=== PATIENT | female | born 1965 | race Caucasian/White ===

== ENCOUNTER 2019-10-12 11:58 | Day surgery (SDC) | payer OTHER, SELFPAY ==
[2019-10-12] VITALS (7 sets, daily range): BP systolic 106–129; BP diastolic 70–88; PULSE 85–112; RESP 12–24; TEMP 35.9–36.2; O2SAT 92–100; BMI 31.6
--- NOTE | 2019-10-12 | PATH_ITS ---
[facility] Accession Number: [id number] . 01 Material submitted: . colon - CECAL MASS . 02 Diagnosis: Cecum, Mass, Biopsies: Multiple fragments of tubulovillous adenoma. No evidence of malignancy or high-grade dysplasia. MRV 10/13/2019 1216 Local . 02 Electronically signed: . Mara Pepe MD, Pathologist NPI- [id number] . 01 Gross description: . CECAL MASS: Received in formalin are multiple fragment(s) of rogers, soft tissue measuring 0.1 x 0.1 x 0.1 cm to 0.7 x 0.6 x 0.5 cm submitted entirely in 2 cassette(s) /[facility] [place] 10/12/2019 2231 Local . 02 Pathologist provided ICD-10: D12.0 . 02 CPT . 065765 Performed at: 01 [facility] [address], [place], [place] [id number] MD Arsenio Bloom MD Phone: [phone] Performed at: [address] [facility] [address] [place], [place] [id number] MD Mara Pepe MD Phone: [phone]
[2019-10-12] MEDS: SODIUM CHLORIDE 0.9% 1,000 ML 200 ML IV (12:34)
--- NOTE | 2019-10-12 13:01 | PM.HP.1 ---
History of Present Illness History of Present Illness Date Patient Seen: 10/12/19 Time Patient Seen: 13:01 Chief complaint: [id number] Narrative: Patient presents for colorectal screening. They have never had any previous examination for such. No personal or family history of colon cancer. On further history denies any recent gastrointestinal symptoms. No nausea, vomiting, abdominal pain, loss of appetite, unexplained weight loss, change in bowel habits, diarrhea, constipation, melena, hematochezia, or bright red blood per rectum. Patient History Medical History Obesity (Acute) Surgical History H/O tubal ligation (Acute) History of appendectomy (Acute) Family & Social History Social History: household members spouse Tobacco & Substance use: Smoking Status Former smoker alcohol intake frequency a few times a week Substance Use Type does not use Meds Home Medications and Allergies Home Medications Medication Instructions Recorded Confirmed Type fluoxetine 20 mg PO DAILY 10/12/19 10/12/19 History levothyroxine [Synthroid] 25 mcg PO DAILY 10/12/19 10/12/19 History loratadine 10 mg PO DAILY 10/12/19 10/12/19 History Allergies Allergy/AdvReac Type Severity Reaction Status Date / Time amoxicillin Allergy Unknown Hives Verified 10/12/19 12:18 Review of Systems Review of Systems Narrative: A 10 point review of systems is negative except as noted in the HPI Exam Vital Signs (past 8 hours): - 10/12/19 12:24 Temperature 97.2 F L Pulse Rate 98 H Respiratory Rate 24 Blood Pressure 125/87 Pulse Oximetry 96 Oxygen Delivery Method Room Air Narrative Exam Narrative: General-no acute distress, well nourished HEENT-moist mucous membranes, no scleral icterus Neck-supple, no lymphadenopathy Chest- non labored respirations, clear to auscultation bilaterally Cardiac-regular rate no peripheral edema Abdomen-soft, nontender, non distended Extremities-warm, well perfused Neurological-alert and oriented, no focal deficits Assessment & Plan Assessment and plan (1) Screening for colon cancer: Current visit: Yes Status: Acute Assessment & Plan narrative: The patient requires colorectal screening and colonoscopy is recommended. Technical details were discussed. Risks, benefits, alternatives explained. Risks including but not limited to myocardial infarction, aspiration, bleeding, pain, missed lesion, incomplete examination, need for further radiographic studies, colonic perforation, and need for major abdominal surgery were discussed. All questions were answered to their satisfaction, and they are in agreement with this plan.
--- NOTE | 2019-10-12 13:43 | PM.OP.ENDO ---
Operative Date/Time/Diagnoses Date of procedure: 10/12/19 Time of procedure: 13:43 Pre-op diagnosis: Screening colonoscopy Post-op diagnosis: same Procedure & Clinicians Study performed: Colonoscopy Same procedure as scheduled: Yes Indications: Screening, no prior colonoscopy Surgeon: Aleksander Cameron Procedure Notes SCOAP/Timeout: Performed Procedure in detail: Patient placed in left lateral decubitus position. Time out was performed. Procedural sedation was administered with Versed and Fentanyl. A rectal exam demonstrated external hemorrhoids no internal masses. Colonoscopy scope was placed into the rectum and advanced through the colon to the cecum. The ileocecal valve was identified. The scope was then slowly withdrawn examining colon thoroughly in all directions. The colonoscopy was notable for the following 1. 2 cm cecal polyp removed with snare hot and biopsy forceps. Base was cauterized. The specimen were was removed entirely 2. Diverticulosis 3. External hemorrhoids 4. Quality of prep excellent Scope withdrawal time: 7 Sedation minutes: 40 Findings: polyp Specimen(s): other (Cecal polyp) Complications: none Impression: Adenomatous polyp Post-procedure Recommendations: Colonscopy in 5 years Disposition: same day surgery
[2019-10-12] MEDS: fentaNYL 250 MCG/5 ML INJ IV (13:46)
[2019-10-12] MEDS: MIDAZOLAM 5 MG/5 ML VIAL IV (13:46)
== END 2019-10-12 15:05 | disposition home or self-care (01) ==
PROVIDERS: Family Provider Physician Assistant Medical; PCP Physician Assistant; Referring Provider Surgery; Visit Provider Surgery
PROC: 0DJD8ZZ Inspection of Lower Intestinal Tract, Via Natural or Artificial Opening Endoscopic (ICD-10-PCS; CPT 45378; principal; 2019-10-12 13:00)
DX: Z12.11 Encounter for screening for malignant neoplasm of colon (principal); K57.30 Diverticulosis of large intestine without perforation or abscess without bleeding; D12.0 Benign neoplasm of cecum; K64.8 Other hemorrhoids
CPT/HCPCS: 45385; 99152; 99153; J2250; J3010

== ENCOUNTER → 2021-04-09 17:28 | Outpatient (CLI) | payer OTHER, SELFPAY ==
--- NOTE | 2021-04-09 | DI.MRI.S_ITS ---
PROCEDURE: MR ANKLE LT WO CON INDICATIONS: unspecified injury of left ankle, initial encounter TECHNIQUE: Noncontrast sagittal T1 spin echo and T2 fast spin echo with fat saturation, axial proton density fast spin echo and T2 fast spin echo with fat saturation, coronal T1 spin echo and T2 fast spin echo with fat saturation through the ankle/hindfoot. COMPARISON: None. FINDINGS: Bones and joints: Bones: No marrow contusions or fractures. Coalitions: No hindfoot coalitions. Talar dome: No osteochondral injuries of the talar dome. Other: No pathologic joint effusions. There is circumferential soft tissue edema. Mild tibiotalar joint effusion. Medial structures: Posterior tibialis: Intact. Minimal tenosynovitis. Flexor digitorum longus: Intact. Flexor hallucis longus: Intact. Posterior tibial neurovascular bundle: Normal. Deltoid ligament complex: Intact. Spring ligament: Intact. Lateral structures: Anterior talofibular ligament: Intact. Calcaneofibular ligament: Intact. Posterior talofibular ligament: Intact. Anterior tibiofibular ligament: Intact. Posterior tibiofibular ligament: Intact. Intermalleolar ligament: Intact. Tibiofibular syndesmosis: Normal. Peroneus longus: Intact. Peroneus brevis: Intact. Bony peroneal tubercle and retrotrochlear prominence: Normal. Sinus tarsi: Normal. Anterior structures: Tibialis anterior: Intact. Extensor hallucis longus: Intact. Extensor digitorum longus: Intact. Dorsal talonavicular ligament: Intact. Posterior and plantar structures: Achilles tendon: Intact. Plantar fascia: Age-indeterminate mild medial band plantar fasciitis. Muscles: No abductor digiti quinti muscle atrophy to suggest Ramírez neuropathy. IMPRESSION: Diffuse circumferential subcutaneous soft tissue edema. Mild tibiotalar joint effusion. Age-indeterminate medial band plantar fasciitis. Minimal posterior tibialis tenosynovitis. Dictated by: Mayito Bob M.D. on 04/10/2021 at 9:27 Approved by: Mayito Bob M.D. on 04/10/2021 at 9:41
--- NOTE | 2021-04-09 | DI.MRI.S_ITS ---
PROCEDURE: MRFOOT LT WO CON INDICATIONS: unspecified injury of left ankle, initial encounter TECHNIQUE: Noncontrast sagittal T1 spin echo and T2 fast spin echo with fat saturation, long-axis T1 spin echo and T2 fast spin echo with fat saturation, short-axis T1 spin echo and T2 fast spin echo with fat saturation through the forefoot. COMPARISON: None. FINDINGS: Image quality: Excellent. Bones and joints: No bone marrow contusions or metatarsal stress fractures. The sesamoid bones appear in expected positions, without internal edema. Moderate 1st metatarsophalangeal joint degeneration. No intraosseous lesions. Soft tissues: There is extensive dorsal subcutaneous soft tissue swelling. The visualized plantar foot muscles demonstrate normal signal and bulk. Visualized flexor and extensor tendons appear intact, without tenosynovitis. The distal insertions of the peroneus brevis and longus tendons appear intact. The principal Lisfranc ligament appears intact. Fluid is seen between the 1st and 2nd metatarsal heads and to a lesser extent the 2nd-3rd and 3rd-4th metatarsal heads. Sagittal images demonstrate no evidence for plantar plate tears. IMPRESSION: Extensive edema and or contusion involving the dorsal subcutaneous soft tissues. Intermetatarsal bursitis, most pronounced at the 1st-2nd intermetatarsal, however to a lesser extent also present at the 2nd-3rd and 3rd-4th intermetatarsal spaces. Moderate 1st MTP joint degeneration. Dictated by: Mayito Bob M.D. on 04/10/2021 at 9:22 Approved by: Mayito Bob M.D. on 04/10/2021 at 9:27
== END ==
PROVIDERS: Family Provider Physician Assistant Medical; Referring Provider Family Medicine; Visit Provider Family Medicine
DX: S99.912A Unspecified injury of left ankle, initial encounter (principal); R93.7 Abnormal findings on diagnostic imaging of other parts of musculoskeletal system; R60.0 Localized edema; M71.572 Other bursitis, not elsewhere classified, left ankle and foot; M19.072 Primary osteoarthritis, left ankle and foot; M72.2 Plantar fascial fibromatosis
CPT/HCPCS: 73718; 73721

== ENCOUNTER → 2021-04-21 17:30 | Outpatient (CLI) | payer OTHER, SELFPAY ==
--- NOTE | 2021-04-21 | DI.MRI.S_ITS ---
PROCEDURE: MR KNEE LT WO CON INDICATIONS: Pain in left knee TECHNIQUE: Noncontrast sagittal PD fast spin echo and T2 fast spin echo with fat saturation, sagittal 3-D FLASH with fat saturation; coronal T1 spin echo and PD fast spin echo with fat saturation, and axial PD fast spin echo with fat saturation through the knee. COMPARISON: None. FINDINGS: Image quality: Excellent. Menisci: Moderate T2 signal elevation at the posterior meniscal capsular junction of the posterior horn medial meniscus. Lateral meniscus is within normal limits. Cruciate ligaments: The anterior and posterior cruciate ligaments appear intact. Medial structures: The medial collateral ligament appears intact. Visualized portions of the pes anserinus tendons appear normal. No abnormal bursal fluid. Lateral structures: The lateral collateral ligament, long and short heads of the biceps femoris tendon appear intact. The popliteus tendon appears normal. Iliotibial band appears normal. Anterior structures: The quadriceps and patellar tendons appear intact. Patellar alignment is normal. No femoral trochlear dysplasia or ventral trochlear prominence. No edema in the infrapatellar fat pad. There is moderate prepatellar subcutaneous fluid and elevated T2 signal fat stranding. Bones and cartilage: No bone marrow contusions or fractures. Mild articular cartilage loss diffusely overlies the weight-bearing aspects of the medial femoral condyle and medial tibial plateau. Mild articular cartilage loss overlies the medial and lateral patellar facets. Joint space: There is physiologic knee joint fluid. Trace Knight's cyst. Normal appearing synovial plicae are incidentally noted. IMPRESSION: 1. Tricompartmental osteoarthritis with associated articular cartilage loss. 2. Meniscal capsular junction injury involving the medial meniscus. 3. Trace Knight's cyst. Dictated by: Peña Be M.D. on 04/22/2021 at 10:50 Approved by: Peña Be M.D. on 04/22/2021 at 10:52
== END ==
PROVIDERS: Family Provider Physician Assistant Medical; PCP Family Medicine; Referring Provider Family Medicine; Visit Provider Family Medicine
DX: M25.562 Pain in left knee (principal); M17.12 Unilateral primary osteoarthritis, left knee
CPT/HCPCS: 73721

== ENCOUNTER → 2023-10-27 14:59 | Outpatient (CLI) | payer OTHER, SELFPAY ==
--- NOTE | 2023-10-27 15:01 | DI.NM.S_ITS ---
PROCEDURE: NM EXERCISE TREADMILL NON NUC COMPARISON: None INDICATIONS: Chest pain, unspecified FINDINGS: Rest ECG sinus rhythm. Anastacio protocol 7:31, maximum heart rate 170 bpm (103% peak predicted), maximum blood pressure 190/90, 7.5 METS, CHANO -2%. Exercise ECG sinus tachycardia, no ST segment changes or arrhythmias. No reports of exercise-induced chest pain. IMPRESSION: Low risk study. No evidence of exercise-induced ischemia or arrhythmia. Normal hemodynamic response. Fair exercise capacity. Dictated by: Nadine Nobles D.O. on 10/27/2023 at 16:25 Approved by: Nadine Nobles D.O. on 10/27/2023 at 16:29
== END ==
PROVIDERS: Family Provider Physician Assistant Medical; PCP Family Medicine; Referring Provider Nurse Practitioner Family; Visit Provider Nurse Practitioner Family
DX: R07.9 Chest pain, unspecified (principal)
CPT/HCPCS: 93017

== ENCOUNTER → 2023-11-11 14:51 | Outpatient (CLI) | payer OTHER, SELFPAY | PROVIDERS: Family Provider Physician Assistant Medical; PCP Family Medicine; Referring Provider Internal Medicine Critical Care Medicine; Visit Provider Internal Medicine Critical Care Medicine | DX: R06.02 Shortness of breath (principal); F17.210 Nicotine dependence, cigarettes, uncomplicated; J98.8 Other specified respiratory disorders | CPT/HCPCS: 94060; 94726; 94729 ==

== ENCOUNTER → 2024-05-23 07:56 | Outpatient (CLI) | payer OTHER, SELFPAY ==
--- NOTE | 2024-05-23 07:58 | DI.CT.S_ITS ---
PROCEDURE: CT CHEST ABD PEL W CON INDICATIONS: ADENOMATOUS POLYP OF TRANSVERSE COLON TECHNIQUE: After the administration of intravenous contrast, 5 mm thick sections acquired from the lung apices to the symphysis. 5 mm coronal and sagittal reformats were performed, with additional 7 mm MIP reformats through the lungs. For radiation dose reduction, the following was used: automated exposure control, adjustment of mA and/or kV according to patient size. COMPARISON: [facility], , CT LUNG CANCER SCREENING, 08/18/2023, 10:14. FINDINGS: Image quality: Excellent. CHEST: Lower Neck: No enlarged lymph nodes. Thyroid: No thyroid nodules which require sonographic follow up, per consensus guidelines. Axillae: No enlarged lymph nodes. Chest Wall: Unremarkable. Lungs and Pleura: No pneumothorax or pleural effusions. No consolidation or suspicious nodules. Small calcified granuloma. Heart: Heart size is normal. No pericardial effusion. Thoracic Vessels: The aorta and pulmonary arteries demonstrate normal size. Mediastinum and Renuka: No enlarged lymph nodes. Esophagus: No wall thickening. No hiatal hernia. ABDOMEN: Liver: No solid mass. Gallbladder: No radiopaque gallstones or wall thickening. Biliary ducts: No biliary dilation. Pancreas: No ductal dilation. Spleen: Size is within normal limits. Adrenal Glands: No adrenal nodules. Kidneys and Ureters: No hydronephrosis. No solid mass. No complex renal cystic lesion which requires follow up. Stomach and Bowel: A few colonic diverticuli. No mass is identified. The appendix is not seen. No small bowel obstruction. Stomach is unremarkable. Peritoneum: No abnormal intraperitoneal fluid. No free air. Ventral Wall: No significant ventral hernia. Abdominal Nodes: No retroperitoneal or mesenteric adenopathy by size criteria. Vessels: Aorta and inferior vena cava are normal in size. PELVIS: Pelvic Organs: Anteverted uterus. Bladder: No bladder wall thickening, accounting for underdistention. Pelvic Nodes: No enlarged lymph nodes. Miscellaneous: No inguinal hernias are seen. Bones: No aggressive osseous abnormality. IMPRESSION: No metastatic disease demonstrated. No colonic mass identified. No adenopathy. Lungs are clear. Dictated by: Obinna Blum M.D. on 05/23/2024 at 15:52 Approved by: Obinna Blum M.D. on 05/23/2024 at 16:01
== END ==
PROVIDERS: Family Provider Physician Assistant Medical; PCP Family Medicine; Referring Provider Surgery; Visit Provider Surgery
DX: D12.3 Benign neoplasm of transverse colon (principal); K57.90 Diverticulosis of intestine, part unspecified, without perforation or abscess without bleeding
CPT/HCPCS: 71260; 74177; Q9967